=== PATIENT | female | born 1980 | race Caucasian/White ===

== ENCOUNTER 2018-08-17 17:07 | Day surgery (SDC) | payer OTHER ==
[2018-08-17 17:50] VITALS: BMI 40.6
--- NOTE | 2018-08-17 18:49 | PDOC.LDHP ---
Labor and Delivery H&P Chief complaint: other HPI: 38 y/o at 37w2d, patient of Dr. Shipley, presents after having an episode of arm tingling, heart racing, and shortness of breath. These symptoms resolved but now she has a headache. She felt like it happened when her baby changed positions. Denies VB, LOF, ctx, or decreased FM. ROS neg for HEENT, cv, pulm, gi, gu, neuro, psych, skin, musculoskeletal or constitutional symptoms other than mentioned above. OB History Details: 2 prior SVDs, last was over 10 years ago. Current complications: none Current medications: pre- vitamins, iron Previous surgical history: other (hand surgery, breast augmentation x 2) Allergies/Adverse Reactions: Allergies Allergy/AdvReac Type Severity Reaction Status Date / Time No Known Allergies Allergy Verified 08/17/18 17:43 Social history: none - Physical Exam Vital signs reviewed and normal: yes General: NAD, resting Lungs: nonlabored breathing Abdomen: gravid Extremeties: no edema FHT: category 1 (130s, mod variability, + accels, no decels) Peterson contractions every: none - Assessment 38 y/o at 37w2d with subjective tachycardia and arm tingling that has resolved. Patient felt it was related to position of baby. Offered Tylenol for GIBSON but patient declined. status reassuring with reactive NST. - Plan -: D/c home with precautions. Advised to keep scheduled appointments.
== END 2018-08-17 18:45 | disposition home or self-care (01) ==
LOC: L&D/OP 17:07
PROVIDERS: ATTEND Obstetrics & Gynecology
DX: O99.89 Other specified diseases and conditions complicating pregnancy, childbirth and the puerperium (principal); R20.2 Paresthesia of skin; R00.0 Tachycardia, unspecified; R06.02 Shortness of breath; R51 Headache; Z3A.37 37 weeks gestation of pregnancy; Z79.899 Other long term (current) drug therapy
CPT/HCPCS: 99282

== ENCOUNTER 2018-08-21 09:22 | Inpatient (IN) | payer OTHER ==
[2018-08-21] MEDS ORDERED: Ibuprofen 800 MG TAB PO PRN (09:53)
[2018-08-21] MEDS ORDERED: HYDROcodone/Acetaminophen 5/325 mg Tablet PO PRN ×2 (09:53)
[2018-08-21] MEDS ORDERED: Lidocaine 1% (PF) 30 ML VIAL SC PRN (09:53)
[2018-08-21] MEDS ORDERED: Diphenoxylate HCl/Atropine Tablet PO PRN ×2 (09:53)
[2018-08-21] MEDS ORDERED: Docusate 100 MG CAP PO PRN (09:53)
[2018-08-21] MEDS ORDERED: Acetaminophen 500 MG TAB PO PRN (09:53)
[2018-08-21] MEDS ORDERED: Misoprostol 200 MCG TAB PR PRN (09:53)
[2018-08-21] MEDS ORDERED: Ondansetron PF 4 MG/2 ML Vial IVP PRN ×2 (09:53→16:00)
[2018-08-21] MEDS ORDERED: NS / Oxytocin 40 units/1000ml 1,000 ML IV PRN (09:53)
[2018-08-21] MEDS ORDERED: Promethazine HCl 25 MG/ML VIAL IM PRN ×2 (09:53→16:00)
[2018-08-21] MEDS ORDERED: NS w/ Oxytocin 10 units 500 ML IV SCH (10:00)
[2018-08-21 10:21] LABS: Hemoglobin 10.3 g/dL (12.0-16.0); Mean Corpuscular HGB CONC 32.6 g/dL (32.0-36.0); Mean Corpuscular Hemoglobin 27.4 pg (27.0-31.0); Mean Platelet Volume 9.7 fL (7.4-10.4); Platelet Count 164 thou/uL (130-400); RBC Distribution Width 14.5 % (11.5-14.5); Red Blood Cell (RBC) Count 3.76 mill/uL (4.20-5.40)
[2018-08-21 10:40] VITALS: BMI 42.5
[2018-08-21] MEDS: Lactated Ringer's 1,000 ML IV SCH ×2 (10:58→15:40)
[2018-08-21 11:04] LABS: HBSAg Index 0.22 S/CO (0-0.99); Hep B Surf Ag Non-Reactive S/CO (NonReactive)
[2018-08-21 11:08] LABS: Syphilis Antibody Nonreactive (Nonreactive); Syphilis Antibody Index 0.03 S/CO (<1.00 Non-Reactive)
[2018-08-21] MEDS: Butorphanol Tartrate 1 MG/ML VIAL SLOW IVP PRN ×2 (12:48→14:10)
[2018-08-21] MEDS ORDERED: Fentanyl 4 mcg/Bup 0.1% Cadd 100 ML ONE ×2 (13:01→20:48)
[2018-08-21] MEDS ORDERED: diphenhydrAMINE 50 MG/ML VIAL IVP PRN (16:00)
[2018-08-21] MEDS ORDERED: Fentanyl 4 mcg/Bupivacaine 0.1% Cassette 100 ML EPIDURAL SCH (16:00)
[2018-08-21] MEDS ORDERED: Eucerin (Mineral Oil/Petrolatum,White) 30 gm Jar TOP PRN (16:00)
[2018-08-21] MEDS ORDERED: Communication Order-Pharmacy FS SCH (16:00)
[2018-08-21] MEDS ORDERED: ePHEDrine/0.9% NaCl/PF SYRINGE 50 mg/10 ml SLOW IVP PRN (16:00)
[2018-08-21] MEDS ORDERED: Lactated Ringer's 500 ML IV PRN (16:00)
[2018-08-21] MEDS ORDERED: Naloxone HCl 0.4 mg/ml Vial IVP PRN ×2 (16:00)
[2018-08-21] MEDS ORDERED: Acetaminophen 325 MG TAB PO PRN (16:00)
[2018-08-21] MEDS ORDERED: Acetaminophen 500 MG TAB ONE (23:39)
[2018-08-21] MEDS ORDERED: Ampicillin 2 GM VIAL ONE (23:39)
[2018-08-21] MEDS ORDERED: Acetaminophen 500 MG TAB PO SCH (23:45)
[2018-08-21] MEDS ORDERED: Ampicillin 2 GM in Sodium Chloride 0.9% 100 ML IVPB SCH (23:59)
[2018-08-22] MEDS ORDERED: Acetaminophen/Codeine 30-300mg Tablet PO PRN ×2 (01:39)
[2018-08-22] MEDS ORDERED: Preparation H Ointment 28 GM TUBE PR PRN (01:39)
[2018-08-22] MEDS ORDERED: Bisacodyl 10 MG SUPP PR PRN (01:39)
[2018-08-22] MEDS ORDERED: Misoprostol 200 MCG TAB VAG PRN (01:39)
[2018-08-22] MEDS ORDERED: Ondansetron PF 4 MG/2 ML Vial IVP PRN (01:39)
[2018-08-22] MEDS ORDERED: Zolpidem Tartrate 5 MG TAB PO PRN (01:39)
[2018-08-22] MEDS ORDERED: diphenhydrAMINE 25 MG CAP PO PRN (01:39)
[2018-08-22] MEDS ORDERED: Lanolin Ointment 7 GM TUBE TOP PRN (01:39)
[2018-08-22] MEDS ORDERED: Milk Of Magnesia 30 ML UDCUP PO PRN (01:39)
[2018-08-22] MEDS ORDERED: NS / Oxytocin 40 units/1000ml 1,000 ML IV SCH (01:45)
[2018-08-22] MEDS: Lactated Ringer's 1,000 ML IV SCH (04:15)
[2018-08-22] MEDS: Ampicillin/Sulbactam 3 GM in Sodium Chloride 0.9% 100 ML IVPB SCH ×2 (05:12→11:49)
[2018-08-22] MEDS: Ibuprofen 800 MG TAB PO SCH ×3 (05:13→21:14)
[2018-08-22 06:36] LABS: Hemoglobin 8.6 g/dL (12.0-16.0); Mean Corpuscular HGB CONC 32.2 g/dL (32.0-36.0); Mean Corpuscular Hemoglobin 27.2 pg (27.0-31.0); Mean Corpuscular Volume 84.5 fL (78.0-98.0); Mean Platelet Volume 9.3 fL (7.4-10.4); Platelet Count 152 thou/uL (130-400); RBC Distribution Width 14.5 % (11.5-14.5); Red Blood Cell (RBC) Count 3.17 mill/uL (4.20-5.40); White Blood Cell (WBC) Count 21.2 thou/uL (4.8-10.8)
[2018-08-22] MEDS: Prenatal Vitamin 1 TAB PO SCH (08:56)
[2018-08-22] MEDS: Ferrous Sulfate 325 MG TAB PO SCH ×2 (08:56→17:54)
[2018-08-22] MEDS: Docusate Calcium (SURFAK) 240 MG CAP PO SCH ×2 (08:56→21:13)
[2018-08-22] MEDS ORDERED: Adacel (T-DAP) 0.5 ML VIAL IM ONE (09:00)
[2018-08-22] MEDS ORDERED: Sodium Chloride 0.9% 10 ML ONE ×2 (11:43→13:19)
[2018-08-22] MEDS ORDERED: Lidocaine 2% MPF 10 ML AMP (For Epidural Use) ONE (15:57)
[2018-08-22] MEDS ORDERED: Sodium Chloride 0.9% (PF) 10 ML VIAL ONE (15:57)
[2018-08-22] MEDS ORDERED: Bupivacaine 0.25% 10 ML VIAL ONE (15:57)
[2018-08-22] MEDS ORDERED: ePHEDrine/0.9% NaCl/PF SYRINGE 50 mg/10 ml ONE (15:57)
[2018-08-23] MEDS: Ibuprofen 800 MG TAB PO SCH ×3 (05:43→22:22)
[2018-08-23] MEDS: Prenatal Vitamin 1 TAB PO SCH ×2 (09:42→09:43)
[2018-08-23] MEDS: Docusate Calcium (SURFAK) 240 MG CAP PO SCH ×2 (09:43→22:22)
[2018-08-23] MEDS: Ferrous Sulfate 325 MG TAB PO SCH ×2 (09:44→18:01)
[2018-08-24] MEDS: Ibuprofen 800 MG TAB PO SCH (06:53)
[2018-08-24 09:59] VITALS: BP 115/67; TEMP 97.9
== END 2018-08-24 10:00 | disposition home or self-care (01) | DRG 807 ==
LOC: L&D/OP 09:22 → EDSTATUS 09:24 → L&D 09:25 → 3SW 08-22 03:50
PROVIDERS: ADMIT Obstetrics & Gynecology; ATTEND Obstetrics & Gynecology
PROC: 10E0XZZ Delivery of Products of Conception, External Approach (ICD-10-PCS; principal; 2018-08-22)
PROC: 0HQ9XZZ Repair Perineum Skin, External Approach (ICD-10-PCS; 2018-08-22)
DX: O41.1230 Chorioamnionitis, third trimester, not applicable or unspecified (principal); O70.0 First degree perineal laceration during delivery; Z3A.38 38 weeks gestation of pregnancy; Z37.0 Single live birth
CPT/HCPCS: 36415; 51702; 85027; 86780; 86850; 86870; 86900; 86901; 87340; J0290; J0295; J0595; J2001; J2405; J7050; S0020

== ENCOUNTER 2018-08-26 17:21 | Observation (INO) | payer OTHER ==
[~2018-08-26 17:21] MED LIST: Iopamidol 370 76% 100 ML VIAL ONE
[2018-08-26 18:21] LABS: #Eosinphils 0.2 thou/uL (0.0-0.7); #Lymphocytes 1.3 thou/uL (1.20-3.40); #Monocytes 0.6 thou/uL (0.11-0.59); #Neutrophils 6.1 thou/uL (1.40-6.50); %Basophils 0.6 % (0.0-1.0); %Eosinophils 2.3 % (0.0-10.0); %Lymphocytes 15.6 % (21.0-51.0); %Monocytes 7.7 % (0.0-10.0); %Neutrophils 73.9 % (42.0-75.0); Hemoglobin 8.3 g/dL (12.0-16.0); Mean Corpuscular HGB CONC 31.9 g/dL (32.0-36.0); Mean Corpuscular Hemoglobin 26.3 pg (27.0-31.0); Mean Corpuscular Volume 82.4 fL (78.0-98.0); Mean Platelet Volume 9.4 fL (7.4-10.4); Platelet Count 157 thou/uL (130-400); RBC Distribution Width 14.5 % (11.5-14.5); Red Blood Cell (RBC) Count 3.16 mill/uL (4.20-5.40); White Blood Cell (WBC) Count 8.3 thou/uL (4.8-10.8)
[2018-08-26 18:34] LABS: CKMB 1.2 ng/mL (0-6.6); Troponin I 0.011 ng/mL (< 0.028)
[2018-08-26 19:20] LABS: Bilirubin Negative (Negative); Blood, Urine Large (Negative); Clarity Cloudy (Clear); Glucose, Urine (Dipstick) Negative (Negative); Leukocyte Small (Negative); Nitrite Negative (Negative); Protein, Urine (Dipstick) Negative (Neg-Trace); Specific Gravity, Urine 1.015 (1.005-1.030); Urobilinogen 0.2 mg/dL (0.2-1.0)
[2018-08-26 19:22] LABS: Bacteria/HPF 1+ HPF (None Seen); Oval Fat Bodies/HPF 1+ HPF (None Seen); Squamous Epithelial 0-3 HPF (0-3)
[2018-08-26] MEDS ORDERED: Furosemide 20 MG/2 ML VIAL ONE (20:02)
--- NOTE | 2018-08-26 21:02 | CT ---
CTA OF THE CHEST WITH CONTRAST: 08/26/18 COMPARISON: None. HISTORY: Recent vaginal delivery. Elevated D-dimer with shortness of breath. Leg pain and swelling. TECHNIQUE: Multiple contiguous axial images were obtained in a CTA of the chest with contrast per pulmonary embo lism protocol. 3D oblique MIP reformats and direct coronal reformats were performed. FINDINGS: The pulmonary arteries are well opacified without filling defects to suggest pulmonary emboli. The he art is normal in size without focal cardiac abnormality. No hilar or mediastinal lymphadenopathy is s een. No pneumothorax or pleural effusions are seen. Atelectasis is seen in both lung bases, right greater than left. No focal infiltrates are seen in the lungs. No suspicious pulmonary nodules are present. The visualized subdiaphragmatic structures are unremarkable. The patient has bilateral breast implant s. No osseous abnormalities seen. IMPRESSION: No evidence of pulmonary thromboembolism. POS: [facility]
[2018-08-26 21:39] VITALS: BMI 43.0
[2018-08-27] MEDS ORDERED: Acetaminophen 325 MG TAB PO PRN (00:05)
--- NOTE | 2018-08-27 02:26 | HP ---
CHIEF COMPLAINT: Shortness of breath and bilateral lower extremity edema. HISTORY OF PRESENT ILLNESS: This is a 38-year-old female G5, P2 with no significant past medical his tory presenting with shortness of breath and bilateral lower extremity edema after giving , the most spontaneous vaginal delivery [address] Rohit Shipley. Per the patient, her was uneventful and she had no problems during delivery. Patient stated that after delivery, she has not ed that her lower extremities has become edematous and also she is having shortness of breath and dif ficulty catching her breath. Patient states that she also had similar symptoms 15 years ago when she had her first . Patient also states that there is some pain to touch at the dorsal aspect of her foot bilaterally and she feels like her symptoms have progressively worsened and that prompted her to go to the [facility]gent [facility] to be evaluated. 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 Patient states that in the Urgent Care Center, she was given Lasix IV and that helped and patient stated that in the past when she had similar symptoms, she was also g iven Lasix and that helped her with her symptoms. Patient denies any fever, chills, dizziness, heada ches, chest pain, palpitations, abdominal pain, constipation, diarrhea, nausea, vomiting. REVIEW OF SYSTEMS: Positive for shortness of breath, lower extremity edema, otherwise, as documented in the HPI. All other systems were reviewed and are negative. PAST MEDICAL HISTORY: Significant for shortness of breath and lower extremity edema 15 years ago. FAMILY HISTORY: Reviewed and noncontributory to this visit. PAST SURGICAL HISTORY: Right hand surgery. PSYCHIATRIC HISTORY: No previous psychiatric history. SOCIAL HISTORY: Patient denies alcohol use. Patient denies any illicit drug use and patient says th at she quit smoking after she found out that she was . ALLERGIES: No known drug allergies. CURRENT MEDICATIONS: Patient does not take any medications. PHYSICAL EXAMINATION: VITAL SIGNS: Blood pressure 139/78, pulse of 74, respiratory rate of 18, temperature of 98.1, O2 sat of 96 on room air. GENERAL: Patient is awake, alert, oriented x3, does not appear to be in any acute distress. Patient is lying in bed comfortably. Patient states that she is feeling better and the son is feeling mary grace r. HEENT: Normocephalic, atraumatic. Pupils are equally round and react to light. Extraocular movemen ts are intact. No scleral icterus. No conjunctival pallor. Mucous membranes are moist. NECK: Trachea is midline. Full range of motion. No JVD is noted. LUNGS: Clear to auscultation bilaterally at the anterior and posterior lung munguia bilaterally. No wheezing, no rales, no rhonchi is appreciated. CARDIOVASCULAR: Positive S1, S2. Regular rate and rhythm. No murmurs, no gallops, or no rubs appre ciated. ABDOMEN: Soft, nontender, nondistended. Positive bowel sounds in all quadrants. No masses apprecia cynthia. EXTREMITIES: Patient has 5/5 upper extremity strength and good pulses bilaterally at the upper extre mities. Lower extremities: Patient has 2+ edema noted bilaterally at the lower extremities, has goo d strength bilaterally at the lower extremities. There is no erythema noted and there is mild tender ness with touch at the dorsal aspect of the foot bilaterally. NEUROLOGIC: Cranial nerves II through XII grossly intact. No neurologic deficits noted. SKIN: Refer to the description of the lower extremities. PSYCHIATRIC: Normal affect, very pleasant, alert and oriented x3. EKG shows normal sinus rhythm with a rate of 73. ED COURSE: Patient was given Lasix 40 mg. LABORATORY DATA: In the Urgent Care Center, patient's chemistry was within normal limits except for chloride that was 110. BNP that was 511.7. D-dimer that was 2.0. Chest x-ray which showed mild lobito ateral vascular congestion with small pleural effusions, borderline heart size. There was borderline heart size enlargement. There was no other acute process. CT of the chest ruled out PE. ASSESSMENT AND PLAN: This is a 38-year-old female who recently had a normal spontaneous vaginal deli very 4 days ago, presenting with shortness of breath and bilateral lower extremity edema. Patient's symptoms consistent with peripartum cardiomyopathy. At this time, patient has been given Lasix 40 mg IV. We will continue patient on Lasix IV and we will get an echo and we have consulted Cardiology. We will follow up with Cardiology's recommendations. We will continue to monitor the patient closel y and we will continue to treat the patient for her symptoms of shortness of breath and bilateral low er extremity edema. Deep venous thrombosis and gastrointestinal prophylaxis.
[2018-08-27 05:01] LABS: #Eosinphils 0.2 thou/uL (0.0-0.7); #Lymphocytes 1.1 thou/uL (1.20-3.40); #Monocytes 0.6 thou/uL (0.11-0.59); #Neutrophils 4.9 thou/uL (1.40-6.50); %Basophils 0.4 % (0.0-1.0); %Eosinophils 2.8 % (0.0-10.0); %Monocytes 8.9 % (0.0-10.0); %Neutrophils 71.9 % (42.0-75.0); Hemoglobin 8.5 g/dL (12.0-16.0); Mean Corpuscular HGB CONC 32.8 g/dL (32.0-36.0); Mean Corpuscular Volume 85.4 fL (78.0-98.0); Mean Platelet Volume 8.1 fL (7.4-10.4); Platelet Count 204 thou/uL (130-400); RBC Distribution Width 14.3 % (11.5-14.5); Red Blood Cell (RBC) Count 3.05 mill/uL (4.20-5.40); White Blood Cell (WBC) Count 6.8 thou/uL (4.8-10.8)
[2018-08-27 05:03] LABS: Anion Gap 10 mmol/L (10-20); BUN (Urea Nitrogen) 9 mg/dL (7.0-18.7); Calc. Creatinine Clearance 244 mL/min (70-130); Calcium 8.4 mg/dL (7.8-10.44); Carbon Dioxide 27 mmol/L (22-29); Chloride 106 mmol/L (98-107); Estimated GFR-MDRD Greater than 90; Glucose 89 mg/dL (70-105); Potassium 3.4 mmol/L (3.5-5.1); Sodium 140 mmol/L (136-145)
--- NOTE | 2018-08-27 05:34 | HP ---
DATE OF ADMISSION: 08/26/2018 REGULAR PHYSICIAN: Rohit Shipley M.D. ADMITTING PHYSICIAN: Rahul Abdalla M.D. CHIEF COMPLAINT: Shortness of breath, lower extremity swelling. HISTORY OF PRESENT ILLNESS: Ms. Thao is a 38-year-old white G3, now P3, who is status post vaginal delivery by Dr. Rohit Shipley on 08/22/2018, who presented tonight to the [facility] location complaining of a 48- hour history of lower abdominal swelling followed by a 24-hour history of progressively difficult breathing. Her care had been with Dr. Shipley and had been reportedly uncomplicated. She was evaluated at the [facility] location and found to have essentially normal laboratories with the exception of an elevated D-dimer and a markedly elevated BMP. She had a chest x-ray and an EKG, which were unremarkable and a CT angiogram showed no evidence of filling defects consistent with pulmonary emboli. Due to her elevated BNP, the ER doctor there requested that she be sent here for further evaluation. She was given 40 mg of Lasix IV and sent here. PAST OBSTETRICAL HISTORY: Uncomplicated vaginal deliveries at term x3. PAST MEDICAL HISTORY: None. PAST SURGICAL HISTORY: Repair of her hand. MEDICATIONS: vitamins. ALLERGIES: No known allergies. SOCIAL HISTORY: She has smoked in the past, but quit smoking at the beginning of her . She denies alcohol or drug use. FAMILY HISTORY: Unremarkable. REVIEW OF SYSTEMS: Positive for shortness of breath, now improved post-Lasix and lower extremity swelling. She denies nausea, vomiting, fever, or chills. PHYSICAL EXAMINATION: VITAL SIGNS: Here blood pressure is 163/100, pulse 81, respirations 18, temperature 98.7 with 90% O2 saturation on room air. LUNGS: Clear to auscultation. CARDIOVASCULAR: Regular rate and rhythm. ABDOMEN: Soft, nontender and slightly obese. LABORATORY DATA: White blood cell count 8.3, hemoglobin and hematocrit 8.3 and 26.0, platelet count is 157,000. Urine shows a specific gravity of 1.015 with negative protein, negative glucose, negative nitrites, and negative bilirubin. D-dimer 2.2. BNP 511. Chest x-ray earlier showed atelectasis, but no significant areas of consolidation. Her EKG showed normal sinus rhythm without ectopy. ASSESSMENT: 1. Four days status post vaginal delivery, now with swelling and shortness of breath. 2. Concerns for cardiomyopathy with elevated BMP. PLAN: At this time, I have asked the hospitalist to evaluate her for the possibility of cardiomyopathy and consideration of a Cardiology consult with an echocardiogram. Their input is greatly appreciated. LUTHER
[2018-08-27] MEDS: Furosemide 20 MG/2 ML VIAL SLOW IVP SCH ×2 (06:29→13:33)
[2018-08-27] MEDS ORDERED: Potassium Chloride 20 MEQ TAB PO SCH (09:00)
[2018-08-27 10:29] LABS: Iron 36 ug/dL (50-170); Iron Binding Capacity, Total 401 mcg/dL (265-497)
[2018-08-27] MEDS ORDERED: Iron, Sodium Ferric Gluconate 250 MG, Admixture Fee 1 EACH in Sodium Chloride 0.9% 250 ... IVPB SCH (12:30)
[2018-08-27] MEDS ORDERED: Iron Sucrose Complex 200 MG in Sodium Chloride 0.9% 250 ML 250 ML IVPB SCH (12:30)
--- NOTE | 2018-08-27 13:50 | CON ---
DATE OF CONSULTATION: 08/27/2018 INDICATIONS FOR CONSULTATION: This is a 38-year-old female with edema and shortness of breath postpa rtum. We are asked to see her for possible cardiomyopathy. HISTORY OF PRESENT ILLNESS: This very pleasant 38-year-old female who is a 5, para 2 now par a 3 with no significant past medical history, was admitted with shortness of breath and lower extremi ty edema after she gave to her son about 5 days ago. She said it was a long delivery. She had a long labor. She has had a similar episode with her first child, but the second was no problem, it was uneventful. Otherwise, she has had no previous cardiac history that she is aware of. She has n ot had an echocardiogram in the past, but today she did undergo an echocardiogram which showed a norm al ejection fraction. Left atrium was mildly dilated, but there is no indication that she has a card iomyopathy. She did have some mild diastolic dysfunction, and the atrium appeared to be left ventric le appear to be mildly dilated. This may be all due to volume overload. The valvular structures merna ear to be normal, but she also did have some moderate mitral valve regurgitation. Hopefully, this wi ll improve after she is diuresed some. She has been given Lasix and has been diuresing and the feels overall better. REVIEW OF SYSTEMS: Unremarkable except for the shortness of breath and the edema. PAST MEDICAL HISTORY: Significant for the 3 deliveries and also history of some right hand surgery, otherwise unremarkable. FAMILY HISTORY: Noncontributory. There is no early family history of heart disease. SOCIAL HISTORY: No history of alcohol or tobacco abuse. She did smoke in the past, but stopped when she became . ALLERGIES: None. MEDICATIONS: She has been given Lasix and potassium. PHYSICAL EXAMINATION: GENERAL: Reveals a well-developed, well-nourished female who is in no acute distress. She is alert and oriented. Vital signs appear to be stable. HEENT: Unremarkable. Carotid pulses are present. No bruits are present. CHEST: Clear to auscultation at this time. I did not hear any rales, rhonchi or wheezing. CARDIOVASCULAR: Exam reveals a regular rate and rhythm. She has a normal S1, S2. There is no S3, S 4. There were no significant murmurs, heaves, thrills, bruits or rubs. ABDOMEN: Soft, nontender. Positive bowel sounds are present. EXTREMITIES: At this time show no clubbing, cyanosis or edema. NEUROLOGIC: She appears to be intact. VITAL SIGNS: Her blood pressure was 147/89. She is afebrile, respiratory rate is 18, O2 saturations 94%. She has diuresed over 2-1/2 liters at this time. LABORATORY DATA: Shows a hemoglobin of 8.5, WBC 6.8, potassium 3.4, otherwise laboratory data was un remarkable. IMPRESSION: 1. Volume overload . I suspect she will continue to do very well once she has been given diuretics for just a day or so and she should be back to her baseline. 2. Mitral valve regurgitation which may be due to the volume overload. I would suggest that we repe at the echocardiogram in about 6 months unless she has further episodes or has worsening of her short ness of breath. I would be more than happy to see her back in the office for further evaluation and follow up, but it does not appear that she has any significant problems at this time, but would watch the mitral valve regurgitation. She did have an echocardiogram today which showed a normal left hillary tricular systolic function. Ejection fraction was estimated at 60-65%. There is some probable mild diastolic dysfunction, but again may be due to the volume overload. The left atrium is dilated moder ately and she has moderate to severe mitral valve regurgitation. Overall impression is volume overlo ad in this otherwise healthy 38-year-old female who is and no indication that she has any significant cardiomyopathy. Would continue mild diuresis for just a few days and when she is back to her baseline, would stopped the diuretics, could also try hydrochlorothiazide at a low dose. Otherw ise, I believe she will remain stable. 3. Mild hypertension, I am uncertain as to whether or not this is an ongoing problem or whether or n ot this is a new finding in her. It will be something else to follow. She said that she not had an y problems previously, but I noted recently on the admission, her blood pressure was up to 163/100 bu t with the diuretics this should obviously bring this down to a normal range and if not, then would s tart some type of mild antihypertensive medications. At this time there is no further cardiac workup that would be indicated and from my perspective, she could be discharged to home and can follow up in the office.
--- NOTE | 2018-08-27 14:11 | PDOC.PN ---
- Subjective Encounter Start Date: 08/27/18 Encounter Start Time: 14:08 Subjective: feels much better.reports that leg swelling is better -: no SOB/CP -: reports that she was "pumped full of fluids"in labor - Objective Resuscitation Status: Resuscitation Status FULL:Full Resuscitation MAR Reviewed: Yes Vital Signs & Weight: Vital Signs (12 hours) Temp Pulse Resp BP BP Pulse Ox 08/27/18 11:47 97.8 F 62 18 157/91 H 97 08/27/18 07:39 97.9 F 67 18 147/89 H 94 L 08/27/18 04:05 98.0 F 71 16 135/74 95 Weight Weight 273 lb 12.8 oz I&O: 08/26/18 08/27/18 08/28/18 06:59 06:59 06:59 Intake Total 562 Output Total 2900 Balance -2338 Result Diagrams: 08/27/18 04:26 08/27/18 04:26 Additional Labs: Laboratory Tests 08/26/18 16:01 B-Natriuretic Peptide 511.7 H Radiology Reviewed by me: Yes (ECHO-MR.Mild diastolic dysFx.EF 60%) Phys Exam - Physical Examination Constitutional: NAD HEENT: PERRLA, moist MMs, sclera anicteric, oral pharynx no lesions Neck: no nodes, no JVD, supple, full ROM Respiratory: no wheezing, no rales, no rhonchi, clear to auscultation bilateral Cardiovascular: RRR, no significant murmur, no rub Gastrointestinal: soft, non-tender, no distention, positive bowel sounds Musculoskeletal: pulses present, edema present Neurological: non-focal, normal sensation, moves all 4 limbs Psychiatric: normal affect, A&O x 3 Skin: no rash Dx/Plan (1) Fluid overload Code(s): E87.70 - FLUID OVERLOAD, UNSPECIFIED Status: Acute (2) Mitral regurgitation Status: Acute (3) Hypokalemia Code(s): E87.6 - HYPOKALEMIA Status: Acute (4) AHSAN (iron deficiency anemia) Code(s): D50.9 - IRON DEFICIENCY ANEMIA, UNSPECIFIED Status: Acute - Plan out of bed/ambulate cont lasix for today for next dose and then can DC home on PO for 2-3 days -: follow urine Cx. Abx per Primary team as pt is her baby -: HD stable.No evidence of Cardiomyopathy on echo-likley fluid OL from IVF -: Im team will follow if remains in house -: replace Potassium PO. iron levels checked & low-give IV Iron * . Review of Systems - Review of Systems Constitutional: negative: fever, chills, sweats, weakness, malaise, other ENT: negative: Ear Pain, Ear Discharge, Nose Pain, Nose Discharge, Nose Congestion, Mouth Pain, Mouth Swelling, Throat Pain, Throat Swelling, Other Respiratory: negative: Cough, Dry, Shortness of Breath, Hemoptysis, SOB with Excertion, Pleuritic Pain, Sputum, Wheezing Cardiovascular: edema. negative: chest pain, palpitations, orthopnea, paroxysmal nocturnal dyspnea, light headedness, other Gastrointestinal: negative: Nausea, Vomiting, Abdominal Pain, Diarrhea, Constipation, Melena, Hematochezia, Other Genitourinary: negative: Dysuria, Frequency, Incontinence, Hematuria, Retention , Other Musculoskeletal: negative: Neck Pain, Shoulder Pain, Arm Pain, Back Pain, Hand Pain, Leg Pain, Foot Pain, Other Skin: negative: Rash, Lesions, Sonido, Bruising, Other Neurological: negative: Weakness, Numbness, Incoordination, Change in Speech, Confusion, Seizures, Other - Medications/Allergies Allergies/Adverse Reactions: Allergies Allergy/AdvReac Type Severity Reaction Status Date / Time No Known Allergies Allergy Verified 08/21/18 10:41 Medications: Current Medications Acetaminophen (Tylenol) 650 mg PO Q4H PRN PRN Reason: Headache/Fever/Mild Pain (1-3) Furosemide (Lasix) 20 mg SLOW IVP 0600,1400 [facility] Last Admin: 08/27/18 13:33 Dose: 20 mg Ferric Sodium Gluconate Complex 250 mg/ Miscellaneous Medication 1 each/ Sodium Chloride 270 mls @ 129.808 mls/hr IVPB ONE HUBER Stop: 08/27/18 16:00 Last Admin: 08/27/18 13:45 Dose: 270 mls Sodium Chloride (Flush - Normal Saline) 10 ml IVF PRN PRN PRN Reason: Saline Flush
[2018-08-27] MEDS ORDERED: NIFEdipine XL 30 MG TAB PO SCH (16:18)
[2018-08-27] MEDS ORDERED: Labetalol HCl 100 MG/20 ML VIAL SLOW IVP PRN (16:42)
[2018-08-27 17:23] LABS: ALT (SGPT) 70 U/L (8-55); AST (SGOT) 50 U/L (5-34); Albumin 3.7 g/dL (3.5-5.0); Alkaline Phosphatase 82 U/L (40-150); Bilirubin, Direct 0.1 mg/dL (0.1-0.3); Bilirubin, Total 0.3 mg/dL (0.2-1.2); Protein, Total 6.6 g/dL (6.0-8.3)
[2018-08-27 19:47] VITALS: TEMP 97.9
[2018-08-27 20:06] VITALS: BP 145/84
--- NOTE | 2018-08-28 03:40 | DIS ---
DATE OF ADMISSION: 08/26/2018 DATE OF DISCHARGE: 08/27/2018 ADMITTING DIAGNOSES: 1. day #5. 2. Acute shortness of breath. 3. Lower extremity swelling. DISCHARGE DIAGNOSES: 1. day #5. 2. Acute shortness of breath. 3. Lower extremity swelling. 4. Likely preeclampsia. CONSULTATIONS: Cardiology and Internal Medicine. HOSPITAL COURSE: Patient is a 38-year-old female who presented to the emergency room with acute shor tness of breath day #5 with complaints of extreme lower extremity swelling. She was noted to have an elevated BNP, these findings coupled with her symptoms. There was some concern that she may be developing a cardiomyopathy and was transferred to [facility] in [place] for furt her evaluation. At the outside ER, chest x-ray and EKG were unremarkable and a CT angiogram did not show any evidence of pulmonary emboli. Prior to arrival, the patient received 40 mg of Lasix IV and has been given another 40 mg of Lasix during her stay here. Cardiology was consulted. An echocardio gram was performed, which did demonstrate normal ejection fraction and some mild regurgitation of the mitral valve. Recommendations by Cardiology is a followup in 6 months for repeat echocardiogram and during the course of her stay, blood pressures have remained primarily in the mild range with her in itial severe range of blood pressure upon presentation at 163/100 and again had elevated blood pressu re during the middle of the day in the 172/97. Upon further investigation at the time of this blood pressure, there is some suspicion that the blood pressure was taken in with poor technique and upon r epeat within 30 minutes, blood pressure was again in the mild range. Since that time, she has been m onitored for approximately 3-1/2 more hours and was noted to have blood pressures in the [id number] al range. The rest of her workup, the patient is noted to have negative protein in her urine; tip ga, has elevated LFTs in the mild range with AST of 15, ALT of 70. Given the overall entire picture, the patient appears to have developed a preeclampsia, which could account for all of her s ymptoms; however, at this point, would not entertain magnesium for seizure prophylaxis given the prop ensity of mild range blood pressures and no other symptoms. The patient has been requesting to go ho me. We have discussed today the patient has a blood pressure cuff at home that she can use to monito r her blood pressures. She has agreed to take Procardia 30 mg daily for the next 10 days and will be following up tomorrow with Dr. Shipley for a blood pressure and check. Anticipate the joshua ent to continue to resolve back to her normal baseline over the next coming weeks. Again, the lloyd negron is being discharged to home with a prescription of Procardia-XL 30 mg to be taken once a day for th e next 10 days and will follow up with Dr. Shipley's office tomorrow.
== END 2018-08-27 19:44 | disposition home or self-care (01) ==
LOC: SCSER 17:21 → 2SW 19:45
PROVIDERS: ADMIT Obstetrics & Gynecology; ATTEND Obstetrics & Gynecology
DX: O99.89 Other specified diseases and conditions complicating pregnancy, childbirth and the puerperium (principal); R22.43 Localized swelling, mass and lump, lower limb, bilateral; R22.2 Localized swelling, mass and lump, trunk; R06.02 Shortness of breath; O99.285 Endocrine, nutritional and metabolic diseases complicating the puerperium; E87.70 Fluid overload, unspecified; E87.6 Hypokalemia; O99.03 Anemia complicating the puerperium; D50.9 Iron deficiency anemia, unspecified; O99.43 Diseases of the circulatory system complicating the puerperium; I34.0 Nonrheumatic mitral (valve) insufficiency; Z87.891 Personal history of nicotine dependence; Z79.899 Other long term (current) drug therapy
CPT/HCPCS: 36415; 71275; 80048; 80076; 81003; 81015; 82553; 83540; 83550; 83880; 84443; 84484; 85025; 85379; 87077; 87086; 93005; 93306; 96365; 96366; 96374; 96375; 96376; G0378; J1940; J2916; J7050